=== PATIENT | female | born 1965 | race Caucasian/White ===

== ENCOUNTER → 2019-07-29 | Outpatient (CLI) | payer OTHER ==
[2019-07-29 13:39] LABS: BILIRUBIN NEGATIVE (NEGATIVE); BLOOD TRACE-INTACT (NEGATIVE); CLARITY CLOUDY (CLEAR); COLOR YELLOW (YELLOW); GLUCOSE NEGATIVE (NEGATIVE); KETONE NEGATIVE (NEGATIVE); PH 5.5 (5.0-9.0)
[2019-07-29 13:40] LABS: LEUKO ESTERASE 2+ (NEGATIVE); NITRITE NEGATIVE (NEGATIVE); UROBILINOGEN 0.2 E.U./dl (0.2-1.0)
[2019-07-29 13:53] LABS: BACTERIA 3+; RBC 31-40 rbc/hpf (0-2); WBC TNTC wbc/hpf (0-5)
== END | disposition home or self-care (01) ==
LOC: LAB 12:17
DX: R35.0 Frequency of micturition (principal)

== ENCOUNTER → 2021-09-13 | Outpatient (CLI) | payer OTHER | END | disposition home or self-care (01) | LOC: MAMMO 13:30 | PROVIDERS: ATTEND Nurse Practitioner Women's Health | DX: Z12.31 Encounter for screening mammogram for malignant neoplasm of breast (principal) ==

== ENCOUNTER 2022-03-31 12:59 | Emergency (ER) | payer OTHER ==
[~2022-03-31] VITALS: Ht 162.5 cm; Wt 81.6 kg
[2022-03-31 14:11] LABS: BASO % 0.3 % (0.0-1.0); EOS # 0.1 10*3/uL (0.0-0.4); EOS % 1.5 % (1.0-4.0); HEMATOCRIT 39.7 % (37.0-47.0); LYMPH # 1.9 10*3/uL (1.3-4.4); LYMPH % 20.2 % (27.0-41.0); MEAN CELL VOLUME 85.4 fl (81.0-99.0); MEAN CORPUSCULAR HGB 27.7 pg (27.0-31.0); MEAN CORPUSCULAR HGB CONC 32.5 g/dl (33.0-37.0); MONO # 0.4 10*3/uL (0.1-1.0); MONO % 3.8 % (3.0-9.0); NEUT % 73.9 % (47.0-73.0); PLATELET COUNT AUTOMATED 247 10*3/uL (130-400); RED BLOOD COUNT 4.65 10*6/uL (4.10-5.10); RED CELL DISTRI WIDTH 14.5 % (0-14.5); WHITE BLOOD COUNT 9.4 10*3/uL (4.8-10.8)
[2022-03-31 14:26] LABS: ALKALINE PHOSPHATASE 144 U/L (45-117); BUN 8 mg/dl (7-24); CHLORIDE 102 mmol/L (98-107); CREATININE 0.94 mg/dL (0.55-1.02); POTASSIUM 3.3 mmol/L (3.5-5.1); SGOT/AST 19 IU/L (3-35); SGPT/ALT 25 U/L (12-78); SODIUM 139 mmol/L (136-145)
[2022-03-31] MEDS ORDERED: CEPHALEXIN500 M1 PO (14:34)
[2022-03-31] MEDS ORDERED: SEPTDS PO (14:34)
== END 2022-03-31 14:41 | disposition home or self-care (01) ==
LOC: ED 12:59
PROVIDERS: Physician Assistant
DX: L03.115 Cellulitis of right lower limb (principal)

== ENCOUNTER → 2023-11-16 | Outpatient (CLI) | payer OTHER ==
[~2023-11-16] MED LIST: CEPHALEXIN500 M1 PO; SEPTDS PO
== END | disposition home or self-care (01) ==
LOC: US 08:00
PROVIDERS: ATTEND Nurse Practitioner Family
DX: K76.0 Fatty (change of) liver, not elsewhere classified (principal); R74.8 Abnormal levels of other serum enzymes; Z86.79 Personal history of other diseases of the circulatory system

== ENCOUNTER → 2024-01-08 | Outpatient (CLI) | payer OTHER ==
[2024-01-08 10:07] LABS: HEMATOCRIT 42.8 % (37.0-47.0); MEAN CELL VOLUME 85.6 fl (81.0-99.0); MEAN CORPUSCULAR HGB 28.6 pg (27.0-31.0); MEAN CORPUSCULAR HGB CONC 33.4 g/dl (33.0-37.0); MEAN PLATELET VOLUME 9.5 fl (9.6-12.3); RED CELL DISTRI WIDTH 14.8 % (0-14.5); WHITE BLOOD COUNT 9.9 10*3/uL (4.8-10.8)
[2024-01-08 10:36] LABS: ALKALINE PHOSPHATASE 157 U/L (46-116); BUN 9 mg/dl (9-23); CHLORIDE 107 mmol/L (98-107); POTASSIUM 3.9 mmol/L (3.4-5.1); SGPT/ALT 91 U/L (5-49)
[2024-01-09 06:08] LABS: HBSAG Confirm. indicated (Negative); HEP B CORE AB, IGM Positive (Negative); HEPATITIS C ANTIBODY Non Reactive (Non Reactive)
[2024-01-09 08:10] LABS: HBSAG CONFIRMATION Positive (.)
== END | disposition home or self-care (01) ==
LOC: MAMMO 12-19 15:00 → LAB 09:36 → MAMMO 10:00
PROVIDERS: Internal Medicine Gastroenterology; ATTEND Nurse Practitioner Women's Health
DX: Z12.31 Encounter for screening mammogram for malignant neoplasm of breast (principal); K76.0 Fatty (change of) liver, not elsewhere classified

== ENCOUNTER 2024-07-11 22:38 | Inpatient (IN) | payer SELFPAY ==
[~2024-07-11] VITALS: Ht 162.6 cm; Wt 89.8 kg
[2024-07-11 22:53] VITALS: BP 157/75
[2024-07-11 23:28] LABS: BASO # 0.1 10*3/uL (0.0-0.1); BASO % 0.7 % (0.0-1.0); EOS # 0.2 10*3/uL (0.0-0.4); EOS % 1.4 % (1.0-4.0); MEAN CELL VOLUME 86.7 fl (81.0-99.0); MEAN CORPUSCULAR HGB 27.9 pg (27.0-31.0); MEAN CORPUSCULAR HGB CONC 32.2 g/dl (33.0-37.0); MEAN PLATELET VOLUME 9.4 fl (9.6-12.3); MONO # 0.9 10*3/uL (0.1-1.0); MONO % 7.6 % (3.0-9.0); NEUT % 70.2 % (47.0-73.0); PLATELET COUNT AUTOMATED 156 10*3/uL (130-400); RED BLOOD COUNT 4.73 10*6/uL (4.10-5.10); RED CELL DISTRI WIDTH 14.6 % (0-14.5); WHITE BLOOD COUNT 11.4 10*3/uL (4.8-10.8)
[2024-07-11 23:50] LABS: POTASSIUM 2.6 mmol/L (3.4-5.1)
[2024-07-12] MEDS ORDERED: LACTULOSE 20 GM/30 ML UDC PO ONE (00:25)
[2024-07-12] MEDS ORDERED: POTASSIUM CHLORIDE 20 MEQ TAB PO ONE (00:40)
[2024-07-12] MEDS ORDERED: PANTOPRAZOLE SO40 MG PO (00:54)
[2024-07-12] MEDS ORDERED: Acetaminophen/Hydrocodone 5 MG/325 MG TABLET PO PRN (01:30)
[2024-07-12] MEDS ORDERED: MORPHINE Sulfate 2 MG/ML SYR IV PRN (01:30)
[2024-07-12] MEDS ORDERED: ACETAMINOPHEN 325 MG TAB PO PRN (01:30)
[2024-07-12] MEDS ORDERED: Ondansetron Hydrochloride 4 MG/2 ML VIAL IV PRN (01:30)
[2024-07-12] MEDS ORDERED: ACETAMINOPHEN 650 MG SUPP R PRN (01:30)
[2024-07-12 05:27] VITALS: BP 136/62
[2024-07-12 07:37] LABS: BASO # 0.1 10*3/uL (0.0-0.1); BASO % 0.6 % (0.0-1.0); EOS # 0.2 10*3/uL (0.0-0.4); EOS % 1.5 % (1.0-4.0); HEMATOCRIT 40.5 % (37.0-47.0); MEAN CELL VOLUME 84.2 fl (81.0-99.0); MEAN CORPUSCULAR HGB 28.3 pg (27.0-31.0); MEAN CORPUSCULAR HGB CONC 33.6 g/dl (33.0-37.0); MEAN PLATELET VOLUME 9.2 fl (9.6-12.3); MONO # 0.9 10*3/uL (0.1-1.0); MONO % 8.2 % (3.0-9.0); NEUT # 7.3 10*3/uL (2.3-7.9); NEUT % 67.9 % (47.0-73.0); PLATELET COUNT AUTOMATED 157 10*3/uL (130-400); RED BLOOD COUNT 4.81 10*6/uL (4.10-5.10); RED CELL DISTRI WIDTH 14.5 % (0-14.5); WHITE BLOOD COUNT 10.8 10*3/uL (4.8-10.8)
[2024-07-12 08:06] LABS: FREE T4 1.31 ng/dl (0.89-1.76); POTASSIUM 2.9 mmol/L (3.4-5.1); TOTAL PROTEIN 7.1 gm/dL (6.0-8.0)
[2024-07-12 09:00] VITALS: BP 124/75
[2024-07-12] MEDS ORDERED: HEPARIN SODIUM 5,000 UNIT/ML VIAL SC SCH (10:00)
[2024-07-12] MEDS ORDERED: FUROSEMIDE 20 MG/2 ML VIAL IV SCH ×2 (10:00→18:00)
[2024-07-12] MEDS ORDERED: SPIRONOLACTONE 25 MG TAB PO SCH (10:00)
[2024-07-12] MEDS ORDERED: RIFAXIMIN 550 MG TAB PO SCH (10:00)
[2024-07-12] MEDS ORDERED: Nicotine 21 MG PATCH T SCH (10:00)
[2024-07-12 13:29] VITALS: BP 150/80
[2024-07-12 20:48] VITALS: BP 147/57
[2024-07-13] VITALS: BP 130/72
[2024-07-13 03:06] LABS: HBsAG SCREEN Confirm. indicated (Negative); HCV Ab Non Reactive (Non Reactive); HEP B CORE Ab, IgM Positive (Negative)
[2024-07-13] MEDS ORDERED: Pantoprazole Sodium 40 MG TAB PO SCH (06:00)
[2024-07-13 06:58] LABS: BASO # 0.1 10*3/uL (0.0-0.1); BASO % 0.5 % (0.0-1.0); EOS # 0.1 10*3/uL (0.0-0.4); EOS % 1.1 % (1.0-4.0); HEMATOCRIT 37.4 % (37.0-47.0); MEAN CORPUSCULAR HGB 28.3 pg (27.0-31.0); MEAN CORPUSCULAR HGB CONC 32.9 g/dl (33.0-37.0); MEAN PLATELET VOLUME 9.6 fl (9.6-12.3); MONO % 7.8 % (3.0-9.0); NEUT % 70.6 % (47.0-73.0); PLATELET COUNT AUTOMATED 148 10*3/uL (130-400); RED BLOOD COUNT 4.35 10*6/uL (4.10-5.10); RED CELL DISTRI WIDTH 14.5 % (0-14.5); WHITE BLOOD COUNT 12.7 10*3/uL (4.8-10.8)
[2024-07-13 07:24] LABS: ALKALINE PHOSPHATASE 97 U/L (46-116); BUN 12 mg/dl (9-23); CHLORIDE 100 mmol/L (98-107); SGPT/ALT 21 U/L (5-49); TOTAL PROTEIN 6.1 gm/dL (6.0-8.0)
[2024-07-13 07:33] LABS: POTASSIUM 2.4 mmol/L (3.4-5.1)
[2024-07-13 08:00] VITALS: BP 126/79
[2024-07-13] MEDS ORDERED: POTASSIUM CHLORIDE 20 MEQ TAB PO ONE ×2 (08:30)
[2024-07-13] MEDS ORDERED: POTASSIUM CHLORIDE 20 MEQ TAB ONE (09:16)
[2024-07-13] MEDS ORDERED: LACTULOSE 20 GM/30 ML UDC PO SCH (10:00)
[2024-07-13 12:00] VITALS: BP 128/78
[2024-07-13 16:00] VITALS: BP 129/77
[2024-07-13] MEDS ORDERED: POTASSIUM CHLORIDE 20 MEQ TAB PO SCH (18:00)
[2024-07-13 20:00] VITALS: BP 108/75
[2024-07-13] MEDS ORDERED: Meloxicam 7.5 MG TAB PO ONE (21:50)
[2024-07-14] VITALS: BP 126/69
[2024-07-14 06:11] LABS: BASO # 0.1 10*3/uL (0.0-0.1); BASO % 0.5 % (0.0-1.0); EOS # 0.3 10*3/uL (0.0-0.4); EOS % 2.5 % (1.0-4.0); MEAN CELL VOLUME 85.3 fl (81.0-99.0); MEAN CORPUSCULAR HGB 28.2 pg (27.0-31.0); MEAN CORPUSCULAR HGB CONC 33.1 g/dl (33.0-37.0); MEAN PLATELET VOLUME 9.8 fl (9.6-12.3); MONO % 10.1 % (3.0-9.0); NEUT # 6.4 10*3/uL (2.3-7.9); NEUT % 62.1 % (47.0-73.0); PLATELET COUNT AUTOMATED 141 10*3/uL (130-400); RED BLOOD COUNT 4.22 10*6/uL (4.10-5.10); RED CELL DISTRI WIDTH 14.5 % (0-14.5); WHITE BLOOD COUNT 10.3 10*3/uL (4.8-10.8)
[2024-07-14 06:34] LABS: POTASSIUM 2.7 mmol/L (3.4-5.1)
[2024-07-14 08:00] VITALS: BP 116/68
[2024-07-14] MEDS ORDERED: POTASSIUM CHLORIDE 20 MEQ TAB PO ONE ×2 (08:40)
[2024-07-14] MEDS ORDERED: MAGNESIUM OXIDE 400 MG TAB PO ONE (08:40)
[2024-07-14] MEDS ORDERED: MAGNESIUM SULFATE 100 ML IV ONE (09:50)
[2024-07-14] MEDS ORDERED: LASIX40 MG PO (11:56)
[2024-07-14] MEDS ORDERED: MAGNESIUM400 M1 PO (11:56)
[2024-07-14] MEDS ORDERED: ALDACTONE50 M1 PO (11:56)
[2024-07-14] MEDS ORDERED: KRISTALOSE20 GM PO (11:56)
[2024-07-14] MEDS ORDERED: K-TAB20 MEQ PO (11:56)
[2024-07-14 12:00] VITALS: BP 136/101
== END 2024-07-14 14:18 | disposition home or self-care (01) | DRG 441 ==
LOC: ED 22:38 → EDHOLD 07-12 01:11 → 4E 07-12 21:46
PROVIDERS: Internal Medicine; Student in an Organized Health Care Education/Training Program; ADMIT Internal Medicine; ATTEND Internal Medicine
DX: K76.82 Hepatic encephalopathy (principal); E43 Unspecified severe protein-calorie malnutrition; N17.0 Acute kidney failure with tubular necrosis; R18.8 Other ascites; K74.60 Unspecified cirrhosis of liver; R73.9 Hyperglycemia, unspecified; R16.1 Splenomegaly, not elsewhere classified; N18.32 Chronic kidney disease, stage 3b; K21.9 Gastro-esophageal reflux disease without esophagitis; F17.210 Nicotine dependence, cigarettes, uncomplicated; R74.01 Elevation of levels of liver transaminase levels; E80.6 Other disorders of bilirubin metabolism; D72.828 Other elevated white blood cell count; K75.9 Inflammatory liver disease, unspecified; E87.6 Hypokalemia; Z88.8 Allergy status to other drugs, medicaments and biological substances; Z79.899 Other long term (current) drug therapy; Z79.01 Long term (current) use of anticoagulants; Z90.710 Acquired absence of both cervix and uterus; Z79.2 Long term (current) use of antibiotics; Z78.9 Other specified health status; Z68.34 Body mass index [BMI] 34.0-34.9, adult

== ENCOUNTER → 2024-07-17 | Outpatient (CLI) | payer SELFPAY ==
[~2024-07-17] MED LIST changes: +ALDACTONE50 M1 PO; +K-TAB20 MEQ PO; +KRISTALOSE20 GM PO; +LASIX40 MG PO; +MAGNESIUM400 M1 PO; +PANTOPRAZOLE SO40 MG PO
== END | disposition home or self-care (01) ==
LOC: LAB 07:38 → EDSTATUS 12:00
PROVIDERS: ATTEND Student in an Organized Health Care Education/Training Program
DX: R18.8 Other ascites (principal); K74.60 Unspecified cirrhosis of liver

== ENCOUNTER → 2024-07-31 | Outpatient (CLI) | payer SELFPAY | END | disposition home or self-care (01) | LOC: RESCLI 14:03 | PROVIDERS: ATTEND Internal Medicine | DX: E87.6 Hypokalemia (principal); K75.9 Inflammatory liver disease, unspecified; R60.1 Generalized edema; K76.82 Hepatic encephalopathy; K21.9 Gastro-esophageal reflux disease without esophagitis; Z79.899 Other long term (current) drug therapy; Z98.890 Other specified postprocedural states; Z88.8 Allergy status to other drugs, medicaments and biological substances ==